=== PATIENT | female | born 1940 | race Caucasian/White ===

== ENCOUNTER → 2023-10-06 | Outpatient (CLI) | payer MEDICARE ==
[2023-10-06 22:39] VITALS: PULSE 68; RESP 18
[2023-10-06 23:00] VITALS: PULSE 64; RESP 14
[2023-10-06 23:30] VITALS: PULSE 64; RESP 16
[2023-10-07] VITALS (10 sets, daily range): PULSE 62–68; RESP 12–20
== END | disposition home or self-care (01) ==
LOC: SLP 20:19
PROVIDERS: ATTEND Internal Medicine Cardiovascular Disease
DX: G47.33 Obstructive sleep apnea (adult) (pediatric) (principal)
CPT/HCPCS: 95810